=== PATIENT | male | born 1960 | race Caucasian/White ===

== ENCOUNTER 2019-04-10 06:33 | Day surgery (SDC) | payer BC ==
[~2019-04-10] VITALS: Ht 172.7 cm; Wt 95.6 kg
[2019-04-10] VITALS (9 sets, daily range): BP systolic 106–144; BP diastolic 70–86
[2019-04-10] MEDS ORDERED: normal saline 1000ml 1,000 ML IV PRN (06:55)
[2019-04-10 07:31] LABS: BASOPHILS # (AUTO) 0.1 X10'3 (0-0.2); BASOPHILS % (AUTO) 0.9 % (0-1); EOSINOPHILS # (AUTO) 0.2 X10'3 (0-0.9); EOSINOPHILS % (AUTO) 1.9 % (0-6); HEMATOCRIT 41.2 % (42.0-52.0); HEMOGLOBIN 13.8 g/dl (14.0-17.9); LYMPHOCYTES # (AUTO) 2.4 X10'3 (1.1-4.8); LYMPHOCYTES % (AUTO) 30.7 % (21-51); MEAN CORPUSCULAR HEMOGLOBIN 28.3 PG (27.0-31.0); MEAN CORPUSCULAR HGB CONC 33.5 g/dL (33.0-36.5); MEAN CORPUSCULAR VOLUME 84.6 FL (78-98); MEAN PLATELET VOLUME 10.5 FL (7.4-10.4); MONOCYTES # (AUTO) 0.7 X10'3 (0-0.9); MONOCYTES % (AUTO) 8.9 % (2-12); NEUTROPHILS # (AUTO) 4.6 X10'3 (1.8-7.7); NEUTROPHILS % (AUTO) 57.6 % (42-75); PLATELET COUNT 122 X10'3 (140-440); RED BLOOD COUNT 4.86 X10'6 (4.70-6.10)
[2019-04-10] MEDS ORDERED: ROSU40TA PO (07:37)
[2019-04-10] MEDS ORDERED: [UNRECOGNIZED DRUG - OTHER] SQ (07:37)
[2019-04-10] MEDS ORDERED: SECU150S2 INJ (07:37)
[2019-04-10] MEDS ORDERED: INSU100C10 SQ (07:37)
[2019-04-10] MEDS ORDERED: LOSA1TAB41 PO (07:37)
[2019-04-10] MEDS ORDERED: METF-436 PO (07:37)
[2019-04-10] MEDS ORDERED: ZOLP10TA5 PO (07:37)
[2019-04-10] MEDS ORDERED: ASPI-10 PO (07:37)
[2019-04-10] MEDS ORDERED: PANT-47 PO (07:37)
[2019-04-10] MEDS ORDERED: ACET1TAB12 PO (07:37)
[2019-04-10 07:43] LABS: ALBUMIN 3.5 G/DL (3.4-5.0); ANION GAP 11 (8-16); BLOOD UREA NITROGEN 26 MG/DL (7-18); BUN/CREATININE RATIO 21.3 (5.4-32.0); CALCIUM 9.7 MG/DL (8.5-10.1); CHLORIDE 104 MMOL/L (99-107); CREATININE 1.22 MG/DL (0.60-1.10); GLUCOSE 177 MG/DL (70-104); POTASSIUM 3.2 MMOL/L (3.5-5.1); SODIUM 142 MMOL/L (135-145); TOTAL CARBON DIOXIDE 27.3 MMOL/L (24-32); eGFR 61 ML/MIN
[2019-04-10] MEDS ORDERED: midazolam 2 mg/2 ml injection IV PRN (08:05)
[2019-04-10] MEDS ORDERED: LIDOcaine 1%/PF 5ML 10 MG/ML VIAL SQ ONE (08:05)
[2019-04-10] MEDS ORDERED: fentaNYL/PF 50MCG/1 ML 2ML syringe IV PRN (08:05)
[2019-04-10] MEDS ORDERED: heparin 1,000 UNITS/NS 500ml 500 ML ICATH ONE (08:05)
[2019-04-10] MEDS ORDERED: iohexol 300mg/ml 100ml inj. ONE (08:12)
[2019-04-10] MEDS ORDERED: heparin 1,000unit/ml 10ml vial 10 ML ONE (08:29)
[2019-04-10] MEDS ORDERED: fentaNYL/PF 50MCG/1 ML 2ML syringe ONE ×3 (08:29→09:22)
[2019-04-10] MEDS ORDERED: midazolam 2 mg/2 ml injection ONE ×3 (08:29→09:22)
[2019-04-10] MEDS ORDERED: heparin 1,000 UNITS/NS 500ml 500 ML ONE (08:30)
[2019-04-10] MEDS ORDERED: diphenhydrAMINE 50 mg/ml inj ONE (09:02)
[2019-04-10] MEDS ORDERED: LIDOcaine 1%/PF 5ML 10 MG/ML VIAL ONE ×2 (09:07→10:28)
== END 2019-04-10 15:30 | disposition home or self-care (01) ==
LOC: SSTAY O 06:33
PROVIDERS: ATTEND Radiology Vascular & Interventional Radiology
DX: E11.51 Type 2 diabetes mellitus with diabetic peripheral angiopathy without gangrene (principal); I70.211 Atherosclerosis of native arteries of extremities with intermittent claudication, right leg; M81.0 Age-related osteoporosis without current pathological fracture; Z72.89 Other problems related to lifestyle; Z87.891 Personal history of nicotine dependence; Z79.82 Long term (current) use of aspirin; Z79.899 Other long term (current) drug therapy; Z79.4 Long term (current) use of insulin
CPT/HCPCS: 36415; 37221; 80048; 82948; 85025; 85347; 85610; C1760; C1769; C1874; C1894; J1200; J1644; J2250; J3010; J7030; Q9967; 99152; 99153; A6213

== ENCOUNTER 2019-06-27 06:39 | Day surgery (SDC) | payer BC ==
[~2019-06-27] VITALS: Ht 172.7 cm; Wt 94.2 kg
[2019-06-27] VITALS (17 sets, daily range): BP systolic 117–155; BP diastolic 68–91
[~2019-06-27 06:39] MED LIST: ACET1TAB12 PO; ASPI-10 PO; INSU100C10 SQ; LOSA1TAB41 PO; METF-436 PO; PANT-47 PO; ROSU40TA PO; SECU150S2 INJ; ZOLP10TA5 PO; [UNRECOGNIZED DRUG - OTHER] SQ
[2019-06-27] MEDS ORDERED: normal saline 1000ml 1,000 ML IV SCH ×2 (07:05→10:50)
[2019-06-27 07:20] LABS: BASOPHILS # (AUTO) 0.1 X10'3 (0-0.2); BASOPHILS % (AUTO) 1.1 % (0-1); EOSINOPHILS # (AUTO) 0.2 X10'3 (0-0.9); EOSINOPHILS % (AUTO) 1.6 % (0-6); HEMATOCRIT 41.6 % (42.0-52.0); LYMPHOCYTES # (AUTO) 2.9 X10'3 (1.1-4.8); LYMPHOCYTES % (AUTO) 28.9 % (21-51); MEAN CORPUSCULAR HEMOGLOBIN 28.4 PG (27.0-31.0); MEAN CORPUSCULAR HGB CONC 33.6 g/dL (33.0-36.5); MEAN CORPUSCULAR VOLUME 84.5 FL (78-98); MEAN PLATELET VOLUME 9.9 FL (7.4-10.4); MONOCYTES # (AUTO) 0.9 X10'3 (0-0.9); MONOCYTES % (AUTO) 8.9 % (2-12); NEUTROPHILS % (AUTO) 59.5 % (42-75); PLATELET COUNT 149 X10'3 (140-440); RED BLOOD COUNT 4.92 X10'6 (4.70-6.10)
[2019-06-27 07:30] LABS: ALBUMIN 3.7 G/DL (3.4-5.0); ANION GAP 10 (8-16); BLOOD UREA NITROGEN 24 MG/DL (7-18); BUN/CREATININE RATIO 20.3 (5.4-32.0); CALCIUM 9.7 MG/DL (8.5-10.1); CHLORIDE 106 MMOL/L (99-107); CREATININE 1.18 MG/DL (0.60-1.10); GLUCOSE 126 MG/DL (70-104); POTASSIUM 3.6 MMOL/L (3.5-5.1); SODIUM 144 MMOL/L (135-145); TOTAL CARBON DIOXIDE 28.3 MMOL/L (24-32); eGFR 63 ML/MIN
[2019-06-27 07:31] LABS: PARTIAL THROMBOPLASTIN TIME 27 SECONDS (22-32)
[2019-06-27] MEDS ORDERED: LIDOcaine 1%/PF 5ML 10 MG/ML VIAL ONE (08:09)
[2019-06-27] MEDS ORDERED: midazolam 2 mg/2 ml injection ONE ×3 (08:09→09:09)
[2019-06-27] MEDS ORDERED: fentaNYL/PF 50MCG/1 ML 2ML syringe ONE ×4 (08:10→09:13)
[2019-06-27] MEDS ORDERED: iohexol 300mg/ml 100ml inj. ONE ×2 (08:10→08:11)
[2019-06-27] MEDS ORDERED: heparin 1,000 UNITS/NS 500ml 500 ML ONE (08:10)
[2019-06-27] MEDS ORDERED: heparin 1,000unit/ml 10ml vial 10 ML ONE (08:25)
[2019-06-27] MEDS ORDERED: diphenhydrAMINE 50 mg/ml inj ONE (09:30)
== END 2019-06-27 16:45 | disposition home or self-care (01) ==
LOC: SSTAY O 06:39
PROVIDERS: ATTEND Radiology Vascular & Interventional Radiology
DX: I70.212 Atherosclerosis of native arteries of extremities with intermittent claudication, left leg (principal); I70.0 Atherosclerosis of aorta; Z88.8 Allergy status to other drugs, medicaments and biological substances; Z79.899 Other long term (current) drug therapy; Z79.01 Long term (current) use of anticoagulants
CPT/HCPCS: 36415; 37220; 37246; 75625; 80048; 85025; 85610; 85730; 99152; 99153; C1725; C1760; C1769; C1894; J1200; J1644; J2250; J3010; J7030; Q9967; 36160

== ENCOUNTER 2019-11-06 06:36 | Observation (INO) | payer BC ==
[~2019-11-06] VITALS: Ht 172.7 cm; Wt 97.9 kg
[2019-11-06] VITALS (12 sets, daily range): BP systolic 114–162; BP diastolic 71–90
[2019-11-06 07:46] LABS: ALBUMIN 3.6 G/DL (3.4-5.0); ANION GAP 8 (8-16); BLOOD UREA NITROGEN 24 MG/DL (7-18); BUN/CREATININE RATIO 19.5 (5.4-32.0); CALCIUM 9.5 MG/DL (8.5-10.1); CHLORIDE 103 MMOL/L (99-107); CREATININE 1.23 MG/DL (0.60-1.10); GLUCOSE 163 MG/DL (70-104); POTASSIUM 3.3 MMOL/L (3.5-5.1); SODIUM 139 MMOL/L (135-145); TOTAL CARBON DIOXIDE 27.9 MMOL/L (24-32); eGFR 60 ML/MIN
[2019-11-06 07:48] LABS: BASOPHILS # (AUTO) 0.1 X10'3 (0-0.2); BASOPHILS % (AUTO) 1.3 % (0-1); EOSINOPHILS # (AUTO) 0.2 X10'3 (0-0.9); EOSINOPHILS % (AUTO) 2.5 % (0-6); HEMATOCRIT 41.2 % (42.0-52.0); HEMOGLOBIN 13.7 g/dl (14.0-17.9); LYMPHOCYTES # (AUTO) 2.6 X10'3 (1.1-4.8); LYMPHOCYTES % (AUTO) 30.7 % (21-51); MEAN CORPUSCULAR HGB CONC 33.2 g/dL (33.0-36.5); MEAN CORPUSCULAR VOLUME 84.2 FL (78-98); MEAN PLATELET VOLUME 11.6 FL (7.4-10.4); MONOCYTES # (AUTO) 0.8 X10'3 (0-0.9); MONOCYTES % (AUTO) 9.9 % (2-12); NEUTROPHILS # (AUTO) 4.7 X10'3 (1.8-7.7); NEUTROPHILS % (AUTO) 55.6 % (42-75); PLATELET COUNT 197 X10'3 (140-440); RED CELL DISTRIBUTION WIDTH 13.8 % (11.5-14.5); WHITE BLOOD COUNT 8.5 X10'3 (4.5-11.0)
[2019-11-06] MEDS ORDERED: normal saline 1000ml IV bolus over 1 hour IV ONE (08:35)
[2019-11-06] MEDS ORDERED: potassium Cl 20 mEq SR tablet PO PRN ×3 (11:50→19:25)
[2019-11-06] MEDS: potassium Cl 20 mEq SR tablet PO PRN ×2 (11:54→16:12)
[2019-11-06] MEDS ORDERED: dextrose 5%-1/2 normal saline 1,000 ML IV SCH (14:35)
[2019-11-06] MEDS ORDERED: LIDOcaine 1%/PF 5ML 10 MG/ML VIAL ONE ×2 (17:05→18:20)
[2019-11-06] MEDS ORDERED: midazolam 2 mg/2 ml injection ONE ×4 (17:05→18:44)
[2019-11-06] MEDS ORDERED: iohexol 300mg/ml 100ml inj. ONE (17:06)
[2019-11-06] MEDS ORDERED: fentaNYL/PF 50MCG/1 ML 2ML syringe ONE ×3 (17:06→18:20)
[2019-11-06] MEDS ORDERED: heparin 1,000 UNITS/NS 500ml 500 ML ONE (17:06)
[2019-11-06] MEDS ORDERED: diphenhydrAMINE 50 mg/ml inj ONE (17:09)
[2019-11-06] MEDS ORDERED: heparin 1,000unit/ml 10ml vial 10 ML ONE (18:07)
[2019-11-06] MEDS ORDERED: normal saline 1000ml 1,000 ML IV SCH ×2 (19:24→19:28)
[2019-11-06] MEDS ORDERED: magnesium Cl slow-release 64mg tablet PO PRN (19:25)
[2019-11-06] MEDS ORDERED: magnesium 4gm in 100ml NS 100 ML IV PRN (19:25)
[2019-11-06] MEDS ORDERED: ondansetron/PF 4mg/2ml inj IV PRN (19:25)
[2019-11-06] MEDS ORDERED: potassium CL 10mEq/100ml bag 100 ML IV PRN ×2 (19:25)
[2019-11-06] MEDS ORDERED: acetaminophen 325mg tablet PO PRN (19:25)
[2019-11-06] MEDS ORDERED: magnesium 2GM in 50ml NS 50 ML IV PRN (19:25)
--- NOTE | 2019-11-06 19:30 | NUR ---
Patient came up from angio procedure, bed side report was received from Steph STILL. Patient was stable, sleeping, and all personal things at bedside.
[2019-11-06] MEDS ORDERED: EVOL140P3 SUBCUT (19:52)
[2019-11-06] MEDS ORDERED: ACET-3067 PO (19:52)
[2019-11-06] MEDS ORDERED: INSU100I29 SUBCUT (19:52)
[2019-11-06] MEDS ORDERED: K and/or MAG REPLACEMENT MC SCH (20:00)
--- NOTE | 2019-11-06 21:04 | NUR ---
PAGER ID: [phone] MESSAGE: [id number] You Velasquez: Patient didn't bring home insulin, can I order Hyperglycemic protocol? Also did not take blood pressure med in AM today, can I order one time dose now or watch BP? Zoë STILL [phone]
[2019-11-06] MEDS ORDERED: glucagon, human recombinant 1mg kit SUBCUT PRN (21:45)
[2019-11-06] MEDS ORDERED: MESSAGE TO PHARMACY PO ONE (21:45)
[2019-11-06] MEDS ORDERED: dextrose ORAL solution 15 GM/59 ML bottle PO PRN ×2 (21:45)
[2019-11-06] MEDS ORDERED: insulin Lispro (HumaLOG) vial - multi-dose SQ SCH (21:45)
[2019-11-06] MEDS ORDERED: dextrose 50%-water 50ml dispensing syringe IV PRN ×2 (21:45)
[2019-11-06] MEDS ORDERED: pantoprazole 40mg Tablet.DR PO SCH (23:35)
[2019-11-06] MEDS ORDERED: losartan 50mg tablet PO SCH (23:35)
[2019-11-07 00:15] VITALS: BP 141/83
[2019-11-07 02:00] VITALS: BP 107/58
[2019-11-07 05:08] LABS: ALBUMIN 3.1 G/DL (3.4-5.0); ANION GAP 6 (8-16); BLOOD UREA NITROGEN 16 MG/DL (7-18); BUN/CREATININE RATIO 13.9 (5.4-32.0); CALCIUM 9.1 MG/DL (8.5-10.1); CHLORIDE 107 MMOL/L (99-107); CREATININE 1.15 MG/DL (0.60-1.10); GLUCOSE 140 MG/DL (70-104); POTASSIUM 3.8 MMOL/L (3.5-5.1); SODIUM 142 MMOL/L (135-145); TOTAL CARBON DIOXIDE 28.7 MMOL/L (24-32); eGFR 65 ML/MIN
[2019-11-07 07:00] VITALS: BP 128/67
[2019-11-07] MEDS ORDERED: insulin Lispro (HumaLOG) vial - multi-dose SQ SCH (07:00)
--- NOTE | 2019-11-07 07:10 | NUR ---
Problems reprioritized. Patient report given, questions answered & plan of care reviewed with Niru STILL.
--- NOTE | 2019-11-07 07:25 | NUR ---
Patient in room PCU 3027. I have received report from Zoë STILL and had the opportunity to ask questions and assume patient care.
[2019-11-07 07:51] LABS: BASOPHILS # (AUTO) 0.1 X10'3 (0-0.2); MONOCYTES # (AUTO) 0.7 X10'3 (0-0.9)
[2019-11-07 07:53] LABS: BASOPHILS % (AUTO) 0.7 % (0-1); EOSINOPHILS # (AUTO) 0.2 X10'3 (0-0.9); EOSINOPHILS % (AUTO) 1.8 % (0-6); HEMATOCRIT 41.1 % (42.0-52.0); HEMOGLOBIN 13.6 g/dl (14.0-17.9); LYMPHOCYTES # (AUTO) 1.9 X10'3 (1.1-4.8); LYMPHOCYTES % (AUTO) 22.1 % (21-51); MEAN CORPUSCULAR VOLUME 84.9 FL (78-98); MEAN PLATELET VOLUME 9.1 FL (7.4-10.4); MONOCYTES % (AUTO) 8.6 % (2-12); NEUTROPHILS # (AUTO) 5.8 X10'3 (1.8-7.7); NEUTROPHILS % (AUTO) 66.8 % (42-75); RED BLOOD COUNT 4.84 X10'6 (4.70-6.10); RED CELL DISTRIBUTION WIDTH 13.9 % (11.5-14.5); WHITE BLOOD COUNT 8.7 X10'3 (4.5-11.0)
[2019-11-07 07:56] LABS: PLATELET COUNT 161 X10'3 (140-440)
[2019-11-07] MEDS ORDERED: pantoprazole 40mg Tablet.DR PO SCH ×2 (08:00→21:00)
[2019-11-07] MEDS ORDERED: HYDROchlorothiazide 12.5mg capsule PO SCH (08:00)
[2019-11-07] MEDS ORDERED: losartan 50mg tablet PO SCH ×2 (08:00→21:00)
[2019-11-07] MEDS ORDERED: metFORMIN 500mg tablet PO SCH (08:00)
[2019-11-07] MEDS ORDERED: acetaminophen w/codeine (60MG) #4 tablet PO PRN (08:00)
--- NOTE | 2019-11-07 08:00 | NUR ---
made aware that HCTZ is usually taken at HS per patient. HCTZ held. Pt. also stated he takes Metformin 1000 mg in the AM and 1000 mg at HS. 1,000 mg administered per his home regimen. made aware. Pt. is on a regular diet, requested C.C. however, stated he is discharging no changes needed.
[2019-11-07] MEDS ORDERED: aspirin 325mg tablet PO SCH (08:30)
--- NOTE | 2019-11-07 11:06 | NUR ---
PAGER ID: [phone] MESSAGE: [id number] You Velasquez has cleared patient to discharge. Nikky STILL ext [phone]
--- NOTE | 2019-11-07 12:40 | NUR ---
Patient was cleared to discharge home. All discharge isntructions and post op instructions reviewed with patient. Vital signs stable. Removed tele and PIV. Patient left facility in stable condition. Groin sites are not actively bleeding, old blood circled on gauze dressing and patient declined them being changed. IR has assessed the sites and pedal pulses as well. Cell phone and carpet jack sent with patient.
[2019-11-07] MEDS ORDERED: insulin glargine (Lantus) pen - multi-dose SQ SCH (21:00)
== END 2019-11-07 12:25 | disposition home or self-care (01) ==
LOC: SSTAY O 06:36 → PCU 3S 19:24
PROVIDERS: ADMIT Internal Medicine; ATTEND Internal Medicine
DX: T82.856A Stenosis of peripheral vascular stent, initial encounter (principal); E11.51 Type 2 diabetes mellitus with diabetic peripheral angiopathy without gangrene; I25.10 Atherosclerotic heart disease of native coronary artery without angina pectoris; E89.0 Postprocedural hypothyroidism; I10 Essential (primary) hypertension; I35.0 Nonrheumatic aortic (valve) stenosis; Z87.891 Personal history of nicotine dependence; Z96.651 Presence of right artificial knee joint; Z79.82 Long term (current) use of aspirin; Z79.4 Long term (current) use of insulin; Z79.899 Other long term (current) drug therapy; Z88.6 Allergy status to analgesic agent; E87.6 Hypokalemia; E11.8 Type 2 diabetes mellitus with unspecified complications; Z79.84 Long term (current) use of oral hypoglycemic drugs
CPT/HCPCS: 36160; 36415; 37246; 75625; 76937; 80048; 82948; 83735; 85025; 85610; 86885; 86900; 86901; 87081; 96372; C1725; C1760; C1769; C1894; G0269; G0378; J1200; J1644; J1815; J2250; J3010; J7030; Q9967; 99152; 99153; A6213

== ENCOUNTER 2020-04-15 06:46 | Day surgery (SDC) | payer BC ==
[2020-04-15] VITALS (9 sets, daily range): BP systolic 114–146; BP diastolic 70–95
[~2020-04-15] VITALS: Ht 172.7 cm; Wt 98.2 kg
[~2020-04-15 06:46] MED LIST changes: +ACET-3067 PO; -ACET1TAB12 PO; +EVOL140P3 SUBCUT; +INSU100I29 SUBCUT; -METF-436 PO; -ROSU40TA PO; -ZOLP10TA5 PO; -[UNRECOGNIZED DRUG - OTHER] SQ
[2020-04-15] MEDS ORDERED: normal saline 1000ml 1,000 ML IV PRN (07:15)
[2020-04-15] MEDS ORDERED: METF500T PO (07:28)
[2020-04-15] MEDS ORDERED: LACT1CAP65 PO (07:30)
[2020-04-15 07:58] LABS: BASOPHILS # (AUTO) 0.1 X10'3 (0-0.2); BASOPHILS % (AUTO) 1.4 % (0-1); EOSINOPHILS # (AUTO) 0.3 X10'3 (0-0.9); EOSINOPHILS % (AUTO) 3.3 % (0-6); HEMATOCRIT 40.5 % (42.0-52.0); HEMOGLOBIN 13.5 g/dl (14.0-17.9); LYMPHOCYTES % (AUTO) 36.5 % (21-51); MEAN CORPUSCULAR HEMOGLOBIN 28.4 PG (27.0-31.0); MEAN CORPUSCULAR HGB CONC 33.4 g/dL (33.0-36.5); MEAN CORPUSCULAR VOLUME 84.9 FL (78-98); MEAN PLATELET VOLUME 9.5 FL (7.4-10.4); MONOCYTES # (AUTO) 0.7 X10'3 (0-0.9); MONOCYTES % (AUTO) 8.5 % (2-12); NEUTROPHILS # (AUTO) 4.1 X10'3 (1.8-7.7); NEUTROPHILS % (AUTO) 50.3 % (42-75); PLATELET COUNT 167 X10'3 (140-440); RED BLOOD COUNT 4.77 X10'6 (4.70-6.10); RED CELL DISTRIBUTION WIDTH 13.8 % (11.5-14.5); WHITE BLOOD COUNT 8.2 X10'3 (4.5-11.0)
[2020-04-15 08:03] LABS: ALBUMIN 3.4 G/DL (3.4-5.0); ANION GAP 10 (8-16); BLOOD UREA NITROGEN 18 MG/DL (7-18); BUN/CREATININE RATIO 14.2 (5.4-32.0); CALCIUM 9.4 MG/DL (8.5-10.1); CHLORIDE 106 MMOL/L (99-107); CREATININE 1.27 MG/DL (0.60-1.10); GLUCOSE 128 MG/DL (70-104); POTASSIUM 3.6 MMOL/L (3.5-5.1); SODIUM 142 MMOL/L (135-145); TOTAL CARBON DIOXIDE 25.9 MMOL/L (24-32); eGFR 58 ML/MIN
[2020-04-15] MEDS ORDERED: LIDOcaine 1%/PF 5ML 10 MG/ML VIAL ONE (08:17)
[2020-04-15] MEDS ORDERED: iohexol 300mg/ml 100ml inj. ONE ×2 (08:17→09:49)
[2020-04-15] MEDS ORDERED: fentaNYL/PF 50MCG/1 ML 2ML syringe ONE ×3 (08:17→09:53)
[2020-04-15] MEDS ORDERED: heparin 1,000 UNITS/NS 500ml 500 ML ONE ×2 (08:17→09:49)
[2020-04-15] MEDS ORDERED: midazolam 2 mg/2 ml injection ONE ×3 (08:17→09:53)
[2020-04-15] MEDS ORDERED: normal saline 1000ml 1,000 ML IV ONE (08:30)
--- NOTE | 2020-04-15 08:30 | NUR ---
Renzo Nazario CEMETERY KEEPER at bedside, new order for fluid bolus given and being administered.
[2020-04-15] MEDS ORDERED: heparin 1,000unit/ml 10ml vial 10 ML ONE (09:01)
[2020-04-15] MEDS ORDERED: normal saline 1000ml 1,000 ML IV SCH (11:15)
--- NOTE | 2020-04-15 14:03 | NUR ---
Started process of sitting pt up in bed post procedure. Pt placed in 45 degree angle sitting position. Pt denies pain, denies cp. pt site stable. No s/s of bleeding or infection. Will continue to monitor.
--- NOTE | 2020-04-15 14:21 | NUR ---
pt sitting up at 90 degree. Denies pain, denies cp. Bilateral groin sites stable, no s/s of bleeding or infection. Will continue to monitor.
--- NOTE | 2020-04-15 14:22 | NUR ---
Pt ate 100% of breakfast tray and 200ml oral liquid.
== END 2020-04-15 14:50 | disposition home or self-care (01) ==
LOC: SSTAY O 06:46
PROVIDERS: ATTEND Radiology Vascular & Interventional Radiology
DX: E11.51 Type 2 diabetes mellitus with diabetic peripheral angiopathy without gangrene (principal); I70.211 Atherosclerosis of native arteries of extremities with intermittent claudication, right leg; I25.10 Atherosclerotic heart disease of native coronary artery without angina pectoris; K21.9 Gastro-esophageal reflux disease without esophagitis; I10 Essential (primary) hypertension; M81.0 Age-related osteoporosis without current pathological fracture; Z86.73 Personal history of transient ischemic attack (TIA), and cerebral infarction without residual deficits; Z20.828 Contact with and (suspected) exposure to other viral communicable diseases; Z79.899 Other long term (current) drug therapy; Z98.890 Other specified postprocedural states; Z79.82 Long term (current) use of aspirin; Z79.4 Long term (current) use of insulin; Z88.8 Allergy status to other drugs, medicaments and biological substances
CPT/HCPCS: 36415; 37220; 37222; 75716; 80048; 82948; 85025; 85347; 87635; 99152; 99153; C1725; C1760; C1769; C1894; J1644; J2250; J3010; J7030; Q9967

== ENCOUNTER 2020-09-12 06:38 | Day surgery (SDC) | payer BC ==
[~2020-09-12] VITALS: Ht 188 cm; Wt 100.0 kg
[2020-09-12] VITALS (11 sets, daily range): BP systolic 132–168; BP diastolic 71–92
[~2020-09-12 06:38] MED LIST changes: +LACT1CAP65 PO; +METF500T PO
[2020-09-12] MEDS ORDERED: normal saline 1000ml 1,000 ML IV SCH ×2 (07:00→11:50)
[2020-09-12] MEDS ORDERED: CYCL-394 PO (07:06)
[2020-09-12 07:42] LABS: ALBUMIN 3.7 G/DL (3.4-5.0); ANION GAP 11 (8-16); BLOOD UREA NITROGEN 25 MG/DL (7-18); BUN/CREATININE RATIO 17.5 (5.4-32.0); CALCIUM 9.6 MG/DL (8.5-10.1); CHLORIDE 105 MMOL/L (99-107); CREATININE 1.43 MG/DL (0.60-1.10); GLUCOSE 184 MG/DL (70-104); POTASSIUM 3.6 MMOL/L (3.5-5.1); SODIUM 141 MMOL/L (135-145); TOTAL CARBON DIOXIDE 24.8 MMOL/L (24-32); eGFR 51 ML/MIN
[2020-09-12] MEDS ORDERED: midazolam 1 mg/ML 2ml injection ONE ×2 (08:17→10:01)
[2020-09-12] MEDS ORDERED: fentaNYL/PF 50MCG/1 ML 2ML syringe ONE ×3 (08:18→11:30)
[2020-09-12 08:35] LABS: BASOPHILS # (AUTO) 0.1 X10'3 (0-0.2); EOSINOPHILS # (AUTO) 0.2 X10'3 (0-0.9); EOSINOPHILS % (AUTO) 2.2 % (0-6); HEMATOCRIT 41.4 % (42.0-52.0); HEMOGLOBIN 13.6 g/dl (14.0-17.9); LYMPHOCYTES % (AUTO) 36.8 % (21-51); MEAN CORPUSCULAR HEMOGLOBIN 28.6 PG (27.0-31.0); MEAN CORPUSCULAR HGB CONC 32.7 g/dL (33.0-36.5); MEAN CORPUSCULAR VOLUME 87.4 FL (78-98); MEAN PLATELET VOLUME 8.4 FL (7.4-10.4); MONOCYTES # (AUTO) 0.7 X10'3 (0-0.9); MONOCYTES % (AUTO) 8.1 % (2-12); NEUTROPHILS # (AUTO) 4.3 X10'3 (1.8-7.7); NEUTROPHILS % (AUTO) 51.9 % (42-75); PLATELET COUNT 223 X10'3 (140-440); RED BLOOD COUNT 4.74 X10'6 (4.70-6.10); RED CELL DISTRIBUTION WIDTH 14.2 % (11.5-14.5); WHITE BLOOD COUNT 8.2 X10'3 (4.5-11.0)
[2020-09-12] MEDS ORDERED: LIDOcaine 1%/PF 5ML 10 MG/ML VIAL ONE (08:38)
[2020-09-12] MEDS ORDERED: heparin 1,000 UNITS/NS 500ml 500 ML ONE (08:38)
[2020-09-12] MEDS ORDERED: iohexol 300mg/ml 100ml inj. ONE (08:38)
[2020-09-12] MEDS ORDERED: diphenhydrAMINE 50 mg/ml inj ONE (09:52)
--- NOTE | 2020-09-12 15:28 | NUR ---
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 Called Dr. Fontana to notify that the patient is taking Aspirin 325 mg once daily but on no other blood thinners. He states with stents placed today the Aspirin 325 mg is adequate. Will continue to monitor.
== END 2020-09-12 15:55 | disposition home or self-care (01) ==
LOC: SSTAY O 06:38
PROVIDERS: ATTEND Radiology Vascular & Interventional Radiology
DX: E11.51 Type 2 diabetes mellitus with diabetic peripheral angiopathy without gangrene (principal); I70.213 Atherosclerosis of native arteries of extremities with intermittent claudication, bilateral legs; I77.89 Other specified disorders of arteries and arterioles; I10 Essential (primary) hypertension; M81.0 Age-related osteoporosis without current pathological fracture; Z88.8 Allergy status to other drugs, medicaments and biological substances; Z79.82 Long term (current) use of aspirin; Z79.899 Other long term (current) drug therapy; Z98.890 Other specified postprocedural states; Z87.891 Personal history of nicotine dependence; Z72.89 Other problems related to lifestyle; Z86.73 Personal history of transient ischemic attack (TIA), and cerebral infarction without residual deficits; Z79.84 Long term (current) use of oral hypoglycemic drugs; Z79.01 Long term (current) use of anticoagulants
CPT/HCPCS: 36415; 37221; 80048; 82948; 85025; 85610; 99152; 99153; C1725; C1760; C1769; C1874; C1894; J1200; J1644; J2250; J3010; J7030; Q9967; 37223; A6213

== ENCOUNTER 2020-09-24 06:44 | Day surgery (SDC) | payer BC ==
[2020-09-24] VITALS (14 sets, daily range): BP systolic 125–174; BP diastolic 67–88
[~2020-09-24] VITALS: Ht 172.7 cm; Wt 100.0 kg
[~2020-09-24 06:44] MED LIST changes: +CYCL-394 PO; -LACT1CAP65 PO
[2020-09-24] MEDS ORDERED: METO100T14 PO (07:33)
[2020-09-24] MEDS ORDERED: normal saline 1000ml 1,000 ML IV SCH ×2 (07:40→12:00)
[2020-09-24 08:14] LABS: ALBUMIN 3.4 G/DL (3.4-5.0); ANION GAP 12 (8-16); BLOOD UREA NITROGEN 20 MG/DL (7-18); BUN/CREATININE RATIO 15.4 (5.4-32.0); CALCIUM 9.4 MG/DL (8.5-10.1); CHLORIDE 104 MMOL/L (99-107); GLUCOSE 153 MG/DL (70-104); POTASSIUM 3.6 MMOL/L (3.5-5.1); SODIUM 142 MMOL/L (135-145); TOTAL CARBON DIOXIDE 25.9 MMOL/L (24-32); eGFR 57 ML/MIN
[2020-09-24 08:16] LABS: BASOPHILS # (AUTO) 0.1 X10'3 (0-0.2); BASOPHILS % (AUTO) 1.2 % (0-1); EOSINOPHILS # (AUTO) 0.2 X10'3 (0-0.9); EOSINOPHILS % (AUTO) 3.1 % (0-6); HEMATOCRIT 38.7 % (42.0-52.0); HEMOGLOBIN 12.9 g/dl (14.0-17.9); LYMPHOCYTES # (AUTO) 2.6 X10'3 (1.1-4.8); LYMPHOCYTES % (AUTO) 33.4 % (21-51); MEAN CORPUSCULAR HEMOGLOBIN 28.5 PG (27.0-31.0); MEAN CORPUSCULAR HGB CONC 33.2 g/dL (33.0-36.5); MEAN CORPUSCULAR VOLUME 85.9 FL (78-98); MEAN PLATELET VOLUME 9.2 FL (7.4-10.4); MONOCYTES # (AUTO) 0.7 X10'3 (0-0.9); NEUTROPHILS # (AUTO) 4.2 X10'3 (1.8-7.7); NEUTROPHILS % (AUTO) 53.3 % (42-75); PLATELET COUNT 154 X10'3 (140-440); RED BLOOD COUNT 4.51 X10'6 (4.70-6.10); RED CELL DISTRIBUTION WIDTH 13.6 % (11.5-14.5); WHITE BLOOD COUNT 7.9 X10'3 (4.5-11.0)
[2020-09-24] MEDS ORDERED: LIDOcaine 1%/PF 5ML 10 MG/ML VIAL ONE (08:17)
[2020-09-24] MEDS ORDERED: iohexol 300 MG/1 ML 50ml polymer ONE (08:18)
[2020-09-24] MEDS ORDERED: heparin 1,000 UNITS/NS 500ml 500 ML ONE ×3 (08:18→11:32)
[2020-09-24] MEDS ORDERED: midazolam 1 mg/ML 2ml injection ONE ×2 (08:38→09:32)
[2020-09-24] MEDS ORDERED: fentaNYL/PF 50MCG/1 ML 2ML syringe ONE ×3 (08:39→10:48)
[2020-09-24] MEDS ORDERED: diphenhydrAMINE 50 mg/ml inj ONE (09:28)
[2020-09-24] MEDS ORDERED: heparin 1,000unit/ml 10ml vial 10 ML ONE (10:12)
[2020-09-24] MEDS ORDERED: iohexol 300mg/ml 100ml inj. ONE (10:39)
[2020-09-24] MEDS ORDERED: acetylcysteine sol. 200 MG/ML 4ml vial PO SCH (20:00)
== END 2020-09-24 17:17 | disposition home or self-care (01) ==
LOC: SSTAY O 06:44
PROVIDERS: ATTEND Radiology Vascular & Interventional Radiology
DX: I74.5 Embolism and thrombosis of iliac artery (principal); I70.218 Atherosclerosis of native arteries of extremities with intermittent claudication, other extremity; E11.51 Type 2 diabetes mellitus with diabetic peripheral angiopathy without gangrene; I35.0 Nonrheumatic aortic (valve) stenosis; N52.9 Male erectile dysfunction, unspecified; Z87.891 Personal history of nicotine dependence; M79.662 Pain in left lower leg; M79.661 Pain in right lower leg
CPT/HCPCS: 36415; 37184; 37220; 37222; 80048; 82948; 85025; 85610; C1725; C1760; C1769; C1894; J1200; J1644; J2250; J3010; J7030; Q9967; 99152; 99153; A6213

== ENCOUNTER 2021-10-23 06:03 | Day surgery (SDC) | payer BC ==
[2021-10-23] VITALS (9 sets, daily range): BP systolic 130–194; BP diastolic 50–85
[~2021-10-23] VITALS: Ht 172.7 cm; Wt 101.0 kg
[~2021-10-23 06:03] MED LIST changes: +ACET-2 PO; -ACET-3067 PO; +METO100T14 PO
[2021-10-23] MEDS ORDERED: normal saline 1000ml 1,000 ML IV SCH ×2 (06:25→10:40)
[2021-10-23] MEDS ORDERED: DIAZ10TA5 PO (06:59)
[2021-10-23] MEDS ORDERED: FENO145T25 PO (06:59)
[2021-10-23] MEDS ORDERED: APIX5TAB3 PO (06:59)
[2021-10-23 07:24] LABS: BASOPHILS # (AUTO) 0.1 X10'3 (0-0.2); BASOPHILS % (AUTO) 0.8 % (0-1); EOSINOPHILS # (AUTO) 0.2 X10'3 (0-0.9); EOSINOPHILS % (AUTO) 2.6 % (0-6); HEMOGLOBIN 13.3 g/dl (14.0-17.9); LYMPHOCYTES # (AUTO) 2.2 X10'3 (1.1-4.8); LYMPHOCYTES % (AUTO) 23.6 % (21-51); MEAN CORPUSCULAR HEMOGLOBIN 26.4 PG (27.0-31.0); MEAN CORPUSCULAR HGB CONC 32.4 g/dL (33.0-36.5); MEAN CORPUSCULAR VOLUME 81.5 FL (78-98); MEAN PLATELET VOLUME 9.2 FL (7.4-10.4); MONOCYTES # (AUTO) 0.7 X10'3 (0-0.9); MONOCYTES % (AUTO) 7.5 % (2-12); NEUTROPHILS # (AUTO) 6.2 X10'3 (1.8-7.7); NEUTROPHILS % (AUTO) 65.5 % (42-75); PLATELET COUNT 172 X10'3 (140-440); RED BLOOD COUNT 5.03 X10'6 (4.70-6.10); RED CELL DISTRIBUTION WIDTH 14.2 % (11.5-14.5); WHITE BLOOD COUNT 9.5 X10'3 (4.5-11.0)
[2021-10-23 07:31] LABS: ALBUMIN 3.4 G/DL (3.4-5.0); ANION GAP 9 (8-16); BLOOD UREA NITROGEN 27 MG/DL (7-18); BUN/CREATININE RATIO 18.9 (5.4-32.0); CALCIUM 9.9 MG/DL (8.5-10.1); CHLORIDE 102 MMOL/L (99-107); CREATININE 1.43 MG/DL (0.60-1.10); GLUCOSE 183 MG/DL (70-104); POTASSIUM 3.8 MMOL/L (3.5-5.1); SODIUM 137 MMOL/L (135-145); TOTAL CARBON DIOXIDE 26.1 MMOL/L (24-32); eGFR 50 ML/MIN
[2021-10-23] MEDS ORDERED: fentaNYL/PF 50MCG/1 ML 2ML syringe ONE ×2 (07:53→09:00)
[2021-10-23] MEDS ORDERED: midazolam 1 mg/ML 2ml injection ONE ×2 (07:53→09:00)
[2021-10-23] MEDS ORDERED: LIDOcaine 1%/PF 5ML 10 MG/ML VIAL ONE (07:53)
[2021-10-23] MEDS ORDERED: heparin 1,000 UNITS/NS 500ml 500 ML ONE (07:53)
[2021-10-23] MEDS ORDERED: iohexol 300mg/ml 100ml inj. ONE (07:54)
[2021-10-23] MEDS ORDERED: proCHLORperazine 10 MG/2 ml inj ONE (09:06)
[2021-10-23] MEDS ORDERED: hydrALAZINE 20mg/ml inj. IV ONE (10:20)
== END 2021-10-23 13:50 | disposition home or self-care (01) ==
LOC: SSTAY O 06:03
PROVIDERS: ATTEND Radiology Vascular & Interventional Radiology
DX: E11.51 Type 2 diabetes mellitus with diabetic peripheral angiopathy without gangrene (principal); I70.213 Atherosclerosis of native arteries of extremities with intermittent claudication, bilateral legs; E78.00 Pure hypercholesterolemia, unspecified; E11.22 Type 2 diabetes mellitus with diabetic chronic kidney disease; N18.9 Chronic kidney disease, unspecified; Z98.890 Other specified postprocedural states; Z79.899 Other long term (current) drug therapy; Z87.891 Personal history of nicotine dependence; Z72.89 Other problems related to lifestyle; Z79.4 Long term (current) use of insulin; Z79.01 Long term (current) use of anticoagulants
CPT/HCPCS: 36415; 37220; 75630; 80048; 82948; 85025; 99152; 99153; C1725; C1760; C1769; C1894; J0360; J1644; J2250; J3010; J3490; Q9967; A6213; J0780